=== PATIENT | female | born 1985 | race Caucasian/White ===

== ENCOUNTER → 2020-01-20 15:15 | Outpatient (BNVA) | payer MEDICAID, SELFPAY | PROVIDERS: Family Provider Nurse Practitioner; Visit Provider Nurse Practitioner Family | DX: R05 Cough (principal); R50.9 Fever, unspecified; R53.83 Other fatigue; Z11.59 Encounter for screening for other viral diseases | CPT/HCPCS: 87635 ==

== ENCOUNTER → 2022-02-22 13:44 | Outpatient (BNVA) | payer MEDICAID, SELFPAY | PROVIDERS: Family Provider Nurse Practitioner; PCP Nurse Practitioner; Visit Provider Nurse Practitioner | DX: Z20.822 Contact with and (suspected) exposure to COVID-19 (principal); R50.9 Fever, unspecified | CPT/HCPCS: 87426 ==

== ENCOUNTER 2024-01-06 21:10 | Emergency (ER) | payer MEDICAID, SELFPAY ==
[2024-01-06 21:20] VITALS: BP 123/67; PULSE 109; RESP 20; TEMP 36.6; O2SAT 100; BMI 21.1
--- NOTE | 2024-01-06 21:58 | XRR_ITS ---
PROCEDURE INFORMATION: Exam: XR Abdomen Exam date and time: 01/06/2024 11:21 PM Age: 38 years old Clinical indication: Abdominal pain; Prior surgery; Surgery date: 6+ months; Surgery type: Partial hyst; Additional info: Nausea; Lower abdomen pain; HX cervical/ovarian ca-pt stopped treatment last year TECHNIQUE: Imaging protocol: Radiologic exam of the abdomen. Views: Frontal supine view of the abdomen. 1 View. COMPARISON: CR XR lumbar spine f/e only [id number] 10/05/2017 12:22 PM FINDINGS: Gastrointestinal tract: Mild constipation without bowel dilation to indicate obstruction. Bones/joints: Unremarkable. XR/XR KUB portable [id number] IMPRESSION: Mild constipation without bowel dilation to indicate obstruction.
[2024-01-06 22:14] LABS: Basophils % 0.3 %; Eosinophils % 0.1 %; Hematocrit 42.9 % (36-47); Lymphocytes # 1.8 10^3/uL (0.8-4.8); Lymphocytes % 16.9 %; Mean Corpuscular HGB Conc 34.5 g/dL (30-55); Mean Corpuscular Hemoglobin 28.1 pg (27-33); Mean Corpuscular Volume 81.6 fl (85-98); Mean Platelet Volume 9.6 fL (7.4-10.4); Monocytes # 0.3 10^3/uL (0.2-0.9); Monocytes % 2.8 %; Neutrophils # 8.62 10^3/uL (1.8-7.7); Neutrophils % 79.7 %; Nucleated Red Blood Cells % 0 %; Platelet Count 279 10^3/cmm (157-399); Red Blood Count 5.26 10^6/uL (3.85-5.65); Red Cell Distribution Width 12.1 % (12.1-15.1)
[2024-01-06 22:31] LABS: Alanine Aminotransferase 15 U/L (0-33); Albumin Level 4.6 g/dL (3.5-5.2); Alkaline Phosphatase 67 U/L (35-105); Anion Gap 18.2 (5-19); Aspartate Amino Transferase 17 U/L (0-32); Blood Urea Nitrogen 17 mg/dL (6-20); Calcium 9.4 mg/dL (8.5-10.5); Carbon Dioxide 22 mmol/L (22-29); Chloride 101 mmol/L (98-107); Creatinine Clr Calc Pharmacy 80.6709; Globulin 3.3 g/dL (1.3-4.6); Glomerular Filtration Rate 93.6 mL/min (90-130); Glucose 114 mg/dL (65-115); Lipase 21 U/L (13-60); Osmolality Calculated 286 mOsm/kg (285-295); Potassium 4.2 mmol/L (3.5-5.1); Sodium 137 mmol/L (136-145); Total Bilirubin 0.3 mg/dL (0.15-1.2); Total Protein 7.9 g/dL (6.6-8.7)
[2024-01-06 23:08] LABS: Add Urine Culture? Yes; Add Urine Microscopic? YES; Bacteria Urine 4+ /hpf; Bilirubin Urine Neg (Negative); Blood Urine Neg (Negative); Glucose Urine UA Norm (Normal); Ketones Urine 1+ (Negative); Leukocyte Esterase Urine 2+ (Negative); Mucus Urine 1+ /hpf; Nitrate Urine Negative (Negative); Protein Urine Neg (Negative); RBC Urine 0-4 /hpf (0-2); Specific Gravity, Urine 1.015 (1.005-1.030); Urine Appearance Cloudy (CLEAR); Urine Color Yellow (Yellow); Urobilinogen Urine Neg (Negative); WBC Urine 25-40 /hpf (0-5); pH Urine 9 (5-7)
--- NOTE | 2024-01-07 00:07 | ED_ITS ---
HPI - Abdominal Pain 2 General: Chief Complaint: Abdominal Pain Stated Complaint: Lower abd pain Time Seen by Provider: 01/06/24 21:49 History of Present Illness: 38-year-old female who tells me she has had abdominal pain the last few days. It is worsened today. She has not vomited. No fever. She tells me she has a history of cervical cancer, and that her cancer doctor retired and she needs a new doctor. She has been incarcerated, and therefore unable to achieve medical care. She does note dysuria. She denies vaginal bleeding or discharge. Physical Exam 2 Const: COMMON NORMALS: no acute distress GENERAL APPEARANCE: cooperative; not ill appearing and not frail appearing HENMT: COMMON NORMALS: normocephalic, atraumatic and Normal external nose present HEAD & SCALP: normocephalic and atraumatic FACE & SINUS: normal facial exam and face symmetric NOSE: Normal external nose present Eye: COMMON NORMALS: Equal, round and reactive pupils present and EOMs intact bilaterally PUPIL: Yes Equal, round and reactive pupils present Neck/C-Spine: GENERAL: Yes trachea midline Chest: CHEST: Yes Symmetrical chest wall rise Resp: COMMON NORMALS: normal respiratory effort, No retractions, No use of accessory muscles and clear to auscultation bilaterally AUSCULTATION: clear to auscultation bilaterally Cardio: COMMON NORMALS: regular rate and regular rhythm RATE: regular rate RHYTHM: regular rhythm GI: COMMON NORMALS: Normal to inspection, nondistended, normoactive bowel sounds present Extremity: COMMON NORMALS: no pedal edema Neuro: DIANE COMA SCALE: document GCS findings Diane coma scale eye opening: Spontaneous [place] coma scale verbal response: Orientated [place] coma scale motor response: Obey commands Diane coma scale total score: 15 S ENSORY EXAM: Yes extremities (intact) Psych: COMMON NORMALS: speech normal SPEECH: Yes normal speech Skin: COMMON NORMALS: no rashes or lesions noted GENERAL SKIN EXAM: no rashes or lesions noted Course 2 Vital Signs: Vital signs: Vital Signs Temperature 97.9 F 01/06/24 21:20 Pulse Rate 109 H 01/06/24 21:20 Respiratory Rate 20 H 01/06/24 21:20 Blood Pressure 123/67 01/06/24 21:20 Pulse Oximetry 100 01/06/24 21:20 MDM - Abdominal Pain Medical Decision Making Vitals are stable. She is afebrile. Her CBC is normal. Her BMP is normal. Her CRP is normal. Her liver enzymes are normal. Lipase is normal. She does have a 2+ leukocyte esterase urine with 25-40 white blood cells indicative of a urinary tract infection. This will be treated. We will ask case management to find her a physician to follow-up with regarding her reported cervical cancer history. Lab Data 01/06/24 22:09 01/06/24 22:09 Labs/Radiology: Radiology Impressions KUB X-Ray 01/06/24 21:58 IMPRESSION: Mild constipation without bowel dilation to indicate obstruction. Laboratory Results WBC 10.80 10^3/uL (3.29-11.43) 01/06/24 22:09 RBC 5.26 10^6/uL (3.85-5.65) 01/06/24 22:09 Hgb 14.80 g/dL (11.27-16.99) 01/06/24 22:09 Hct 42.9 % (36-47) 01/06/24 22:09 MCV 81.6 fl (85-98) L 01/06/24 22:09 MCH 28.1 pg (27-33) 01/06/24 22:09 MCHC 34.5 g/dL (30-55) 01/06/24 22:09 RDW 12.1 % (12.1-15.1) 01/06/24 22:09 Plt Count 279 10^3/cmm (157-399) 01/06/24 22:09 MPV 9.6 fL (7.4-10.4) 01/06/24 22:09 Neut % (Auto) 79.7 % 01/06/24 22:09 Lymph % (Auto) 16.9 % 01/06/24 22:09 [place] % (Auto) 2.8 % 01/06/24 22:09 Eos % (Auto) 0.1 % 01/06/24 22:09 Baso % (Auto) 0.3 % 01/06/24 22:09 Neut # (Auto) 8.62 10^3/uL (1.8-7.7) H 01/06/24 22:09 Lymph # (Auto) 1.8 10^3/uL (0.8-4.8) 01/06/24 22:09 [place] # (Auto) 0.3 10^3/uL (0.2-0.9) 01/06/24 22:09 Eos # (Auto) 0.0 10^3/uL (0.0-0.8) 01/06/24 22:09 Baso # (Auto) 0.0 10^3/uL (0.0-0.1) 01/06/24 22:09 Nucleated RBC % (auto) 0 % 01/06/24 22:09 Nucleated RBCs # 0.0 /100WBC 01/06/24 22:09 Sodium 137 mmol/L (136-145) 01/06/24 22:09 Potassium 4.2 mmol/L (3.5-5.1) 01/06/24 22:09 Chloride 101 mmol/L (98-107) 01/06/24 22:09 Carbon Dioxide 22 mmol/L (22-29) 01/06/24 22:09 Anion Gap 18.2 (5-19) 01/06/24 22:09 BUN 17 mg/dL (6-20) 01/06/24 22:09 Creatinine 0.7 mg/dL (0.5-0.9) 01/06/24 22:09 GFR Calculation 93.6 mL/min (90-130) 01/06/24 22:09 Glucose 114 mg/dL (65-115) 01/06/24 22:09 Calculated Osmolality 286 mOsm/kg (285-295) 01/06/24 22:09 Calcium 9.4 mg/dL (8.5-10.5) 01/06/24 22:09 Total Bilirubin 0.3 mg/dL (0.15-1.2) 01/06/24 22:09 AST 17 U/L (0-32) 01/06/24 22:09 ALT 15 U/L (0-33) 01/06/24 22:09 Alkaline Phosphatase 67 U/L (35-105) 01/06/24 22:09 C-Reactive Protein 3.0 mg/L (0.0-4.9) 01/06/24 22:09 Total Protein 7.9 g/dL (6.6-8.7) 01/06/24 22:09 Albumin 4.6 g/dL (3.5-5.2) 01/06/24 22:09 Globulin 3.3 g/dL (1.3-4.6) 01/06/24 22:09 Lipase 21 U/L (13-60) 01/06/24 22:09 HCG, Qual Negative (Negative) 01/06/24 22:01 Urine Color Yellow (Yellow) 01/06/24 22:34 Urine Appearance Cloudy (CLEAR) A 01/06/24 22:34 Urine pH 9 (5-7) H 01/06/24 22:34 Ur Specific [place] 1.015 (1.005-1.030) 01/06/24 22:34 Urine Protein Neg (Negative) 01/06/24 22:34 Urine Glucose (UA) Norm (Normal) 01/06/24 22:34 Urine Ketones 1+ (Negative) H 01/06/24 22:34 Urine Blood Neg (Negative) 01/06/24 22:34 Urine Nitrate Negative (Negative) 01/06/24 22:34 Urine Bilirubin Neg (Negative) 01/06/24 22:34 Urine Urobilinogen Neg mg/dL (Negative) 01/06/24 22:34 Ur Leukocyte Esterase 2+ (Negative) H 01/06/24 22:34 Urine RBC 0-4 /hpf (0-2) H 01/06/24 22:34 Urine WBC 25-40 /hpf (0-5) H 01/06/24 22:34 Ur Squamous Epith Cells 5-10 /hpf (0-5) H 01/06/24 22:34 Amorphous Sediment Not Reportable 01/06/24 22:34 Urine Bacteria 4+ /hpf (NONE) H 01/06/24 22:34 Urine Mucus 1+ /hpf 01/06/24 22:34 All radiology interpretation(s) finalized by discharge Discharge Plan Discharge Patient Disposition: Home Clinical Impression: Abdominal pain, UTI (urinary tract infection) Condition: Stable Prescriptions: New cefdinir 300 mg capsule 300 mg PO BID 5 Days Qty: 10 0RF ketorolac 10 mg tablet 10 mg PO TID PRN (Reason: pain) Qty: 10 0RF No Action levothyroxine 25 mcg capsule 25 mcg PO DAILY escitalopram oxalate [Lexapro] 20 mg tablet 20 mg PO DAILY buspirone 10 mg tablet 10 mg PO BID gabapentin 600 mg tablet 600 mg PO TID ferrous gluconate 324 mg (38 mg iron) tablet 324 mg PO DAILY dexamethasone 4 mg tablet 4 mg PO DAILY 7 Days Qty: 7 0RF Discharge Orders: Discharge ED (Routine); Ordered 01/07/24 Ordered By: Spencer Felix Referrals: Heather Peguero FNP [Primary Care Provider] - 1-3 days Patient Instructions: Urinary Tract Infection in Women (ED), Abdominal Pain (ED), Opioid Safety, Pain Management Activity Restrictions/Additional Instructions: Antibiotics as directed. You may take medication for pain as needed. Case management will work on finding you a physician to follow-up with regarding her chronic cervical cancer problem next week. You should get a call from them. Return for problems. Coding Level of Care Code ED Lithograph Printer for Saman Maldonado
[2024-01-07 00:26] LABS: HCG, Serum Qual Negative (Negative)
[2024-01-07] MEDS: oxyCODONE-APAP 5-325 mg Tablet 2 TAB PO (00:39)
[2024-01-07] MEDS: ketorolac 10 mg Tablet PO (00:39)
[2024-01-07] MEDS: ondansetron 4 MG Tablet PO (00:39)
[2024-01-07] MEDS: cefdinir 300 MG CAPSULE PO (00:39)
--- NOTE | 2024-01-09 09:53 | DCPLANNER ---
messaged was sent to mary craig for er f/u
--- NOTE | 2024-01-11 08:34 | DCPLANNER ---
[facility]
== END 2024-01-07 01:00 | disposition home or self-care (01) ==
PROVIDERS: Emergency Provider Emergency Medicine; PCP Nurse Practitioner
DX: N39.0 Urinary tract infection, site not specified (principal); R10.9 Unspecified abdominal pain; Z85.41 Personal history of malignant neoplasm of cervix uteri
CPT/HCPCS: 36415; 74018; 80053; 81001; 83690; 84703; 85025; 86140; 87077; 87086; 87186; 99284; Q0162

== ENCOUNTER 2024-01-07 20:32 | Emergency (ER) | payer MEDICAID, SELFPAY ==
[2024-01-07 20:34] VITALS: BP 128/79; PULSE 67; RESP 16; TEMP 36.6; O2SAT 96; BMI 21.1
--- NOTE | 2024-01-07 20:38 | ED_ITS ---
HPI - General Adult General: Chief complaint: General Medical Stated complaint: out of meds Time Seen by Provider: 01/07/24 20:35 Source: patient and police Limitations: no limitations History of Present Illness: 30-year-old female who is here from longterm she has been arrested she states for the last few weeks she does not have her Suboxone and is having hard time sleeping. Patient was seen here last night as well. States she has chronic pain and has a hard time sleeping she does not have her Suboxone use. Associated symptoms: Deny chest pain, dyspnea, headache(s), nausea, rash or vomiting Review of Systems Const: Denies: fever(s), chills, body aches or change in appetite ENMT: Denies: throat pain or dental pain Card: Denies: chest pain Resp: Denies: dyspnea GI: Reports: abdominal pain; Denies: nausea, vomiting or diarrhea : Denies: dysuria Musc: Denies: neck pain or back pain Skin/Breast: Denies: rash Neuro: Denies: headache(s) Physical Exam Const: COMMON NORMALS: no acute distress, patient oriented x3 and healthy appearing HENMT: COMMON NORMALS: normocephalic and atraumatic HEAD & SCALP: normocephalic and atraumatic Neck/C-Spine: COMMON NORMALS: full ROM and supple Chest: COMMONS NORMALS: normal inspection of the chest Resp: COMMON NORMALS: normal respiratory effort Cardio: COMMON NORMALS: regular rate, regular rhythm and No murmurs present (Cardio) RATE: regular rate RHYTHM: regular rhythm GI: COMMON NORMALS: Normal to inspection, nondistended, normoactive bowel sounds present, Soft to palpation, non-tender and no masses PALPATION: Yes Soft to palpation Extremity: COMMON NORMALS: normal to inspection and full ROM Neuro: COMMON NORMALS: patient oriented x3, moves all extremities and no focal motor deficits Psych: COMMON NORMALS: mental status grossly normal, Normal thought process present and cooperative THOUGHT PROCESS: Normal thought process present Skin: COMMON NORMALS: no rashes or lesions noted and no wounds GENERAL SKIN EXAM: no rashes or lesions noted [facility] - General Adult Medical Decision Making Patient presents here with difficulty sleeping she seen here yesterday. Her exam here is benign we will give her dose of Vistaril not able to refill her Suboxone to the ER she is to follow-up return if worsening. Medical Records I reviewed the patient's medical records. No radiology studies performed this visit Discharge Plan Discharge Patient Disposition: Home Clinical Impression: Chronic pain Condition: Stable Prescriptions: No Action levothyroxine 25 mcg capsule 25 mcg PO DAILY escitalopram oxalate [Lexapro] 20 mg tablet 20 mg PO DAILY buspirone 10 mg tablet 10 mg PO BID gabapentin 600 mg tablet 600 mg PO TID ferrous gluconate 324 mg (38 mg iron) tablet 324 mg PO DAILY dexamethasone 4 mg tablet 4 mg PO DAILY 7 Days Qty: 7 0RF cefdinir 300 mg capsule 300 mg PO BID 5 Days Qty: 10 0RF ketorolac 10 mg tablet 10 mg PO TID PRN (Reason: pain) Qty: 10 0RF Discharge Orders: Discharge ED (Routine); Ordered 01/07/24 Ordered By: Lico De Leon Referrals: Heather Peguero FNP [Primary Care Provider] - Discharge Diet: Advance as tolerated Discharge Activity: Resume usual activity Patient Instructions: Chronic Pain (ED) Coding Level of Care Code ED Electroplating Technician for Saman Maldonado
[2024-01-07] MEDS: hyDROXYzine 25 mg Capsule 50 MG PO (21:06)
== END 2024-01-07 21:17 | disposition home or self-care (01) ==
PROVIDERS: Emergency Provider Emergency Medicine; PCP Nurse Practitioner
DX: Z76.0 Encounter for issue of repeat prescription (principal); G89.29 Other chronic pain; Z79.899 Other long term (current) drug therapy
CPT/HCPCS: 99283

== ENCOUNTER 2025-06-17 08:33 | Outpatient (CLI) | payer MEDICAID, SELFPAY ==
--- NOTE | 2025-06-17 08:40 | US_ITS ---
WS: [id number] DIAGNOSTIC BILATERAL DIGITAL BREAST TOMOSYNTHESIS MAMMOGRAPHY WITH CAD Bilateral breast ultrasound, limited HISTORY: L BREAST PAIN/MASTODYNIA COMPARISON: 12/27/2023 TECHNIQUE: Bilateral craniocaudad, mediolateral oblique, and mediolateral views are submitted with tomosynthesis and SM. Bilateral spot compression CC. Computer aided detection utilized. Breast composition: The breasts are extremely dense, which lowers the sensitivity of mammography. Dense fibroglandular tissue throughout a large portion of each breast. No areas of distortion. Densities are more pronounced bilaterally within each breast posteriorly. No discrete mass identified. No nipple retraction. No suspicious grouping of calcifications. Bilateral breast ultrasound, limited. Ultrasound is performed of each breast in the area of pain. No ultrasound abnormality is identified. Ultrasound is performed in the area of pain which is particularly retroareolar within each breast. US/US breast BI limited* [id number] IMPRESSION: BI-RADS: 0 - Incomplete: Need additional imaging evaluation FOLLOW UP: Need Additional Imaging 1. Prior mammogram was not available for review during the initial diagnostic imaging evaluation. Mammograms have become available and additional imaging is recommended. 2. Additional spot compression views needed in the posterior dense fibroglandu lar tissue that is now present and more pronounced than on 12/27/2023. The area o f increased density is in the posterior breast. Recommend additional bilateral spot compression views. Additional ultrasound may be necessary.
== END 2025-06-17 08:34 | disposition home or self-care (01) ==
LOC: RAD 08:33
PROVIDERS: PCP Nurse Practitioner; Visit Provider Nurse Practitioner Family
DX: N64.4 Mastodynia (principal); R92.323 Mammographic fibroglandular density, bilateral breasts
CPT/HCPCS: 76642; 77062; G0279